=== PATIENT | male | born 1985 | race Caucasian/White ===

== ENCOUNTER 2017-05-13 21:42 | Emergency (ER) | payer SELFPAY ==
[2017-05-13] MEDS ORDERED: Albuterol/Ipratropium 3.0-0.5 MG/3 ML Neb Soln NEB ONE (21:45)
[2017-05-13] MEDS ORDERED: methylPREDNISolone Sodium Succinate 125 MG/2 ML SDV IM ONE (21:45)
--- NOTE | 2017-05-13 21:47 | EDM.PDOC ---
ED HPI GENERAL MEDICAL PROBLEM - General Chief Complaint: Respiratory Problem Stated Complaint: CHEST TIGHTNESS/COUGH/TROUBLE BREATHING Time Seen by Provider: 05/13/17 21:45 Source of Information: Reports: Patient - History of Present Illness INITIAL COMMENTS - FREE TEXT/NARRATIVE: HISTORY AND PHYSICAL: History of present illness: [Patient presents with 2 complaints Complaint #1 patient has persistent cough for over a week he is a pack per day smoker for 15 years fever nausea vomiting chills sweats does have some chest tightness sensation is in no distress, not associated with left arm pain or diaphoresis Complaint #2 right wrist pain after fall at his home yesterday since he fell on outstretched hand he has had 3 out of 10 nonradiating discomfort with the lateral right wrist No head injury or loss of consciousness no fever nausea vomiting chills sweats Review of systems: As per history of present illness and below otherwise all systems reviewed and negative. Past medical history: As per history of present illness and as reviewed below otherwise noncontributory. Surgical history: As per history of present illness and as reviewed below otherwise noncontributory. Social history: No reported history of drug or alcohol abuse. Family history: As per history of present illness and as reviewed below otherwise noncontributory. Physical exam: HEENT: Atraumatic, normocephalic, pupils reactive, negative for conjunctival pallor or scleral icterus, mucous membranes moist, throat clear, neck supple, nontender, trachea midline. Lungs: Clear to auscultation, breath sounds equal bilaterally, chest nontender. Heart: S1S2, regular, negative for clicks, rubs, or JVD. Abdomen: Soft, nondistended, nontender. Negative for masses or hepatosplenomegaly. Negative for costovertebral tenderness. Pelvis: Stable nontender. Genitourinary: Deferred. Rectal: Deferred. Extremities: Atraumatic, negative for cords or calf pain. Neurovascular unremarkable. Neuro: Awake, alert, oriented. Cranial nerves II through XII unremarkable. Cerebellum unremarkable. Motor and sensory unremarkable throughout. Exam nonfocal. Diagnostics: [Chest 2 views ]EKG Therapeutics: [DuoNeb Solu-Medrol 125 mg IM Z-Jaycob 250 mg Medrol Dosepak HFA Wrist splint ] Impression: [Acute bronchitis ]Right wrist sprain/pain Definitive disposition and diagnosis as appropriate pending reevaluation and review of above. body aches, right wrist Pain Score (Numeric/FACES): 8 - Related Data Allergies Allergy/AdvReac Type Severity Reaction Status Date / Time Sulfa (Sulfonamide Allergy Hives Verified 05/13/17 21:51 Antibiotics) Home Meds: Home Meds . [No Known Home Meds] 05/13/17 [History] Past Medical History - Past Health History Medical/Surgical History: Denies Medical/Surgical History Social & Family History - Tobacco Use Smoking Status *Q: Current Every Day Smoker Years of Tobacco use: 12 - Alcohol Use Days Per Week of Alcohol Use: 0 Number of Drinks Per Day: 0 Total Drinks Per Week: 0 - Recreational Drug Use Recreational Drug Use: No Drug Use in Last 12 Months: No Recreational Drug Type: Reports: Marijuana/Hashish Recreational Drug Use Frequency: Monthly ED ROS GENERAL - Review of Systems Review Of Systems: ROS reveals no pertinent complaints other than HPI. ED EXAM, GENERAL - Physical Exam Exam: See Below Course - Vital Signs Last Recorded V/S: Last Vital Signs Temp 98.3 F 05/13/17 21:48 Pulse 107 H 05/13/17 21:48 Resp 20 05/13/17 21:48 BP 131/79 05/13/17 21:48 Pulse Ox 96 05/13/17 21:48 - Orders/Labs/Meds Orders: Active Orders 24 hr Category Date Time Status EKG Documentation Completion [RC] STAT Care 05/13/17 21:45 Active RT Aerosol Therapy [RC] ASDIRECTED Care 05/13/17 21:45 Active Chest 2V [CR] Stat Exams 05/13/17 21:45 Taken Wrist Comp Min 3V Rt [CR] Stat Exams 05/13/17 21:54 Taken Meds: Medications Discontinued Medications Generic Name Dose Route Start Last Admin Trade Name Freq PRN Reason Stop Dose Admin Albuterol/Ipratropium 3 ml 05/13/17 21:45 05/13/17 21:59 Duoneb 3.0-0.5 Mg/3 Ml NEB 05/13/17 21:46 3 ml ONETIME ONE Administration Methylprednisolone Sodium Succinate 125 mg 05/13/17 21:45 05/13/17 22:53 Solu-Medrol IM 05/13/17 21:46 125 mg ONETIME ONE Administration Departure - Departure Time of Disposition: 23:26 Disposition: Home, Self-Care 01 Condition: Good Clinical Impression: Acute bronchitis, Right wrist sprain - Discharge Information Referrals: PCP,None [Primary Care Provider] - Forms: ED Department Discharge Additional Instructions: Medication as prescribed Return if symptoms persist or worsen Follow-up with primary care in 2 weeks sooner as needed Splint right wrist for comfort Ice 20 minute intervals 3 times daily Ibuprofen 400 mg 3 times daily 7-10 days The following information is given to patients seen in the emergency department who are being discharged to home. This information is to outline your options for follow-up care. We provide all patients seen in our emergency department with a follow-up referral. The need for follow-up, as well as the timing and circumstances, are variable depending upon the specifics of your emergency department visit. If you don't have a primary care physician on staff, we will provide you with a referral. We always advise you to contact your personal physician following an emergency department visit to inform them of the circumstance of the visit and for follow-up with them and/or the need for any referrals to a consulting specialist. The emergency department will also refer you to a specialist when appropriate. This referral assures that you have the opportunity for follow-up care with a specialist. All of these measure are taken in an effort to provide you with optimal care, which includes your follow-up. Under all circumstances we always encourage you to contact your private physician who remains a resource for coordinating your care. When calling for follow-up care, please make the office aware that this follow-up is from your recent emergency room visit. If for any reason you are refused follow-up, please contact the [facility] emergency department at and asked to speak to the emergency department charge nurse. - My Orders Last 24 Hours: My Active Orders 05/13/17 21:45 EKG Documentation Completion [RC] STAT RT Aerosol Therapy [RC] ASDIRECTED Chest 2V [CR] Stat 05/13/17 21:54 Wrist Comp Min 3V Rt [CR] Stat - Assessment/Plan Last 24 Hours: My Active Orders 05/13/17 21:45 EKG Documentation Completion [RC] STAT RT Aerosol Therapy [RC] ASDIRECTED Chest 2V [CR] Stat 05/13/17 21:54 Wrist Comp Min 3V Rt [CR] Stat
--- NOTE | 2017-05-14 17:21 | CR ---
EXAM DATE: 05/13/17 PATIENT'S AGE: 31 Patient: MACHELLE BHATT Facility: [place], [place] Site . Site : 1985 Study: XRay Chest [id number]/18/2018 10:50:19 PM Ordering Physician: Doctor Martinez Final Report: INDICATION: Pain. Shortness of breath. TECHNIQUE: PA and lateral chest x-ray. FINDINGS: Heart size is normal. Moderate gas distention stomach. Lungs clear without infiltrate or consolidation. Chest otherwise unremarkable. Dictated by Gerson Vyas MD @ May 13 2017 10:59PM (Electronic Signature) Report Signed by Proxy. JENNIFER
--- NOTE | 2017-05-14 17:22 | CR ---
EXAM DATE: 05/13/17 PATIENT'S AGE: 31 Patient: MACHELLE BHATT Facility: [place], [place] Site . Site : 1985 Study: XRay Extremity Right wrist [id number]/18/2018 10:50:53 PM Ordering Physician: Lucas Walter Final Report: INDICATION: Pain. TECHNIQUE: Three views right wrist. FINDINGS: No acute fracture or dislocation in right wrist. Tiny benign lucency in the lunate. Probable chronic deformity of the right 5th metacarpal. Mild soft tissue swelling right wrist. Remainder negative. Dictated by Gerson Vyas MD @ May 13 2017 11:00PM (Electronic Signature) Report Signed by Proxy. JENNIFER
== END 2017-05-14 00:02 | disposition home or self-care (01) ==
LOC: MW.ED 21:42
DX: S63.501A Unspecified sprain of right wrist, initial encounter (principal); J20.9 Acute bronchitis, unspecified; F17.210 Nicotine dependence, cigarettes, uncomplicated; Z88.2 Allergy status to sulfonamides; W19.XXXA Unspecified fall, initial encounter; Y92.009 Unspecified place in unspecified non-institutional (private) residence as the place of occurrence of the external cause
CPT/HCPCS: 71046; 73110; 93005; 94640; 96374; 99283; J2930

== ENCOUNTER 2018-10-29 14:11 | Emergency (ER) | payer MEDICAID, OTHER ==
[2018-10-29] MEDS ORDERED: Lidocaine 1% 10 ML MDV INJECT ONE (14:25)
--- NOTE | 2018-10-29 15:48 | EDM.PDOC ---
ED HPI GENERAL MEDICAL PROBLEM - General Chief Complaint: Laceration Stated Complaint: LACERATION ON LEFT HAND Time Seen by Provider: 10/29/18 14:17 Source of Information: Reports: Patient History Limitations: Reports: No Limitations - History of Present Illness INITIAL COMMENTS - FREE TEXT/NARRATIVE: HISTORY AND PHYSICAL: History of present illness: Patient is a 33-year-old male presents to the ED today with concern of left hand laceration that occurred just prior to arrival to the ED. Patient states he is remodeling a house and he had a chisel go through and cut his left hand. Patient states he came immediately to the ED after this occurred. Patient states he is up-to-date on his tetanus and had to have a recently updated due to another injury. Patient denies any tingling or numbness of the hand or fingers. Patient denies any other symptoms or concerns. Patient denies fever, chills, chest pain, shortness of breath, or cough. Denies headache, neck stiff ness, change in vision, syncope, or near syncope. Denies nausea, vomiting, abdominal pain, diarrhea, constipation, or dysuria. Has not noted any blood in urine or stool. Patient has been eating and drinking appropriately. Review of systems: As per history of present illness and below otherwise all systems reviewed and negative. Past medical history: As per history of present illness and as reviewed below otherwise noncontributory. Surgical history: As per history of present illness and as reviewed below otherwise noncontributory. Social history: See social history for further information Family history: As per history of present illness and as reviewed below otherwise noncontributory. Physical exam: General: Patient is alert, oriented, and in no acute distress. Patient sitting comfortably on exam table. HEENT: Atraumatic, normocephalic, pupils equal and reactive bilaterally, negative for conjunctival pallor or scleral icterus, mucous membranes moist, TMs normal bilaterally, throat clear, neck supple, nontender, trachea midline. No drooling or trismus noted. No meningeal signs. No hot potato voice noted. Lungs: Clear to auscultation, breath sounds equal bilaterally, chest nontender. Heart: S1S2, regular rate and rhythm without overt murmur Abdomen: Soft, nondistended, nontender. Negative for masses or hepatosplenomegaly. Negative for costovertebral tenderness. Pelvis: Stable nontender. Genitourinary: Deferred. Rectal: Deferred. Skin: See extremities otherwise, Intact, warm, dry. No lesions or rashes noted. Extremities: Negative for cords or calf pain. Neurovascular unremarkable. There is a 3 cm subcutaneous laceration of the distal palmar left hand just inferior to the second digit. Patient is unable to completely flex the second digit completely. Patient has full range of motion of all other digits and wrist. Radial pulses grossly intact and capillary refill less than 2 seconds. Neuro: Awake, alert, oriented. Cranial nerves II through XII unremarkable. Cerebellum unremarkable. Motor and sensory unremarkable throughout. Exam nonfocal. Notes: Dr. Zavala directly involved in patient care. Dr. Cortez, hand specialist on-call for [facility], consulted on patient and thoroughly discussed patient's case. Patient is to be sent home with Keflex antibiotics and to follow up with Dr. Cortez in his clinic on . Patient is to call the clinic to establish a time. Discussed this with patient. Voices understanding and is agreeable to plan of care. Denies any further questions or concerns at this time. Diagnostics: Hand x-ray Therapeutics: Lidocaine, sutures Prescription: Keflex Impression: Left hand laceration Flexor tendon deficit Plan: 1. Keep the area clean and dry. Continue to monitor for signs of infection as discussed. Sutures to be removed in 7-10 days. 2. Tylenol and/or ibuprofen as directed and as needed for pain management and discomfort. Take medication as prescribed 3. Please follow-up with Dr. Cortez, hand specialist, on . Call the number above to schedule appointment. Return to the ED as needed and as discussed. Definitive disposition and diagnosis as appropriate pending reevaluation and review of above. laceration Pain Score (Numeric/FACES): 0 - Related Data Allergies Allergy/AdvReac Type Severity Reaction Status Date / Time Sulfa (Sulfonamide Allergy Hives Verified 10/29/18 14:26 Antibiotics) Home Meds: Home Meds cephALEXin [Keflex] 500 mg PO Q8H 5 Days #15 cap 10/29/18 [Rx] cloNIDine [Catapres] 1 tab PO BID 10/29/18 [History] Past Medical History - Past Health History Medical/Surgical History: Denies Medical/Surgical History Musculoskeletal History: Reports: Other (See Below) Other Musculoskeletal History: brachial plexus injury, fractured/seperated collar bone Neurological History: Reports: Brain Injury - Infectious Disease History Infectious Disease History: Reports: Chicken Pox - Past Surgical History GI Surgical History: Reports: EGD Musculoskeletal Surgical History: Reports: Arthroscopic Knee Social & Family History - Family History Family Medical History: Noncontributory Cardiac: Reports: CAD Endocrine/Metabolic: Reports: Diabetes, Type I Oncologic: Reports: Leukemia, Thyroid - Tobacco Use Smoking Status *Q: Current Every Day Smoker Years of Tobacco use: 15 Packs/Tins Daily: 0.5 - Caffeine Use Caffeine Use: Reports: Coffee, Soda, Tea - Recreational Drug Use Recreational Drug Use: No ED ROS GENERAL - Review of Systems Review Of Systems: ROS reveals no pertinent complaints other than HPI. ED EXAM, SKIN/RASH Exam: See Below (See dictation) ED SKIN PROCEDURES - Laceration/Wound Repair Left Hand Appearance: Subcutaneous, Linear, Mildly Contaminated Distal NVT: Neuro & Vascular Intact Anesthetic Type: Local Local Anesthesia - Lidocaine (Xylocaine): 1% Plain Local Anesthetic Volume: Other (10cc) Skin Prep: Chlorhexidine (Hibiciens), Providone-Iodine (Betadine) Saline Irrigation (cc's): 50 Exploration/Debridement/Repair: Wound Explored, In a Bloodless Field, Explored to Base, No Foreign Material Found Closed with: Sutures Lac/Wound length In cm: 3 Suture Size: 4-0 # of Sutures: 5 Suture Type: Silk, Interrupted Drain Placement: No Sterile Dressing Applied: Nurse Tetanus Status Addressed: Yes (up to date) Complications: No Course - Vital Signs Last Recorded V/S: Last Vital Signs Temp 37.0 C 10/29/18 14:23 Pulse 107 H 10/29/18 14:23 Resp 18 10/29/18 14:23 BP 146/79 H 10/29/18 14:23 Pulse Ox 98 10/29/18 14:23 - Orders/Labs/Meds Orders: Active Orders 24 hr Category Date Time Status Hand Comp Min 3V Lt [CR] Stat Exams 10/29/18 14:24 Taken Meds: Medications Discontinued Medications Generic Name Dose Route Start Last Admin Trade Name Freq PRN Reason Stop Dose Admin Lidocaine HCl 10 ml 10/29/18 14:25 Xylocaine 1% INJECT 10/29/18 14:26 ONETIME ONE Lidocaine HCl Confirm 10/29/18 14:36 Xylocaine-Mpf 1% Administered 10/29/18 14:37 Dose 10 ml .ROUTE .STK-MED ONE Departure - Departure Time of Disposition: 15:50 Disposition: Home, Self-Care 01 Clinical Impression: Deficit of flexor tendon Hand laceration Qualifiers: Encounter type: initial encounter Foreign body presence: without foreign body Laterality: left Qualified Code(s): S61.412A - Laceration without foreign body of left hand, initial encounter - Discharge Information Prescriptions: cephALEXin [Keflex] 500 mg PO Q8H 5 Days #15 cap Referrals: PCP,None [Primary Care Provider] - Forms: ED Department Discharge Additional Instructions: The following information is given to patients seen in the emergency department who are being discharged to home. This information is to outline your options for follow-up care. We provide all patients seen in our emergency department with a follow-up referral. The need for follow-up, as well as the timing and circumstances, are variable depending upon the specifics of your emergency department visit. If you don't have a primary care physician on staff, we will provide you with a referral. We always advise you to contact your personal physician following an emergency department visit to inform them of the circumstance of the visit and for follow-up with them and/or the need for any referrals to a consulting specialist. The emergency department will also refer you to a specialist when appropriate. This referral assures that you have the opportunity for follow-up care with a specialist. All of these measure are taken in an effort to provide you with optimal care, which includes your follow-up. Under all circumstances we always encourage you to contact your private physician who remains a resource for coordinating your care. When calling for follow-up care, please make the office aware that this follow-up is from your recent emergency room visit. If for any reason you are refused follow-up, please contact the [facility] Emergency Department at and asked to speak to the emergency department charge nurse. [facility] [address] [place] [id number] [address] Hand and Wrist Surgery, Saulo White MD [address] [place], [place]AT[place] [address], 3rd floor 1. Keep the area clean and dry. Continue to monitor for signs of infection as discussed. Sutures to be removed in 7-10 days. 2. Tylenol and/or ibuprofen as directed and as needed for pain management and discomfort. Take medication as prescribed 3. Please follow-up with Dr. Cortez, hand specialist, on . Call the number above to schedule appointment. Return to the ED as needed and as discussed. - My Orders Last 24 Hours: My Active Orders 10/29/18 14:24 Hand Comp Min 3V Lt [CR] Stat - Assessment/Plan Last 24 Hours: My Active Orders 10/29/18 14:24 Hand Comp Min 3V Lt [CR] Stat
--- NOTE | 2018-10-29 16:24 | CR ---
Left hand: 3 views left hand were obtained. Comparison: No previous study. Soft tissue air is noted between the thumb and 1st digit. Joint spaces are preserved. No fracture, dislocation or other bony abnormality is seen. Impression: 1. Soft tissue air. No bony abnormality is seen. 2. No radiopaque soft tissue foreign body is seen. Diagnostic code #2 MTDD
== END 2018-10-29 16:35 | disposition home or self-care (01) ==
LOC: MW.ED 14:11
DX: S66.922A Laceration of unspecified muscle, fascia and tendon at wrist and hand level, left hand, initial encounter (principal); F17.210 Nicotine dependence, cigarettes, uncomplicated; Z88.2 Allergy status to sulfonamides; Z79.899 Other long term (current) drug therapy; W26.8XXA Contact with other sharp object(s), not elsewhere classified, initial encounter
CPT/HCPCS: 12002; 73130-26-LT; 73130-LT; 99283; 99283-25